=== PATIENT | male | born 1935 | race Caucasian/White ===

== ENCOUNTER → 2016-04-21 | Outpatient (CLI) | payer MEDICARE, OTHER ==
[~2016-04-21] MED LIST: ASPI-345 PO; ATN25T PO; ATOR40TA2 PO; CLOP75TA3 PO; EZET10TA5 PO
--- NOTE | 2016-04-22 08:47 | Diagnostic Imaging Report ---
INDICATION: Back pain, spinal stenosis. TECHNIQUE: The MRI of the lumbar spine was obtained without contrast in a routine fashion. FINDINGS: The lumbar vertebrae are normal in height. There is diffuse inhomogeneity of the marrow signal without focal space-occupying lesion. The conus medullaris appears unremarkable. There is diffuse disc desiccation throughout all levels. At L5-S1, there is mild facet degenerative change with mild disc bulging. These findings are not causing significant canal stenosis. There is, however, bilateral neuroforaminal stenosis, right worse than left. At L4-5, there is facet joint degenerative change. There is minimal disc bulging. There is ligamentum flavum hypertrophy. These findings in combination cause a moderate to severe central canal stenosis with a canal diameter of about 8 mm. There is also bilateral neuroforaminal narrowing which is severe. At L3-4, there is facet joint hypertrophy and ligamentum flavum prominence with diffuse disc bulging. There is asymmetric disc protrusion on the left side causing narrowing of the left lateral recess. There is canal stenosis with a canal diameter of about 7 mm. There is bilateral neuroforaminal narrowing. At L2-3, there is diffuse disc bulging with facet joint hypertrophy and mild ligamentum flavum prominence. These findings in combination cause a moderate central canal stenosis. The neural foramina appear to be patent. At L1-2 and T12-L1, the canal appears widely patent. There is no significant disc herniation or significant bulge. 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 Dictated by: Dictated on workstation # [id number]
== END ==
LOC: RAD 18:46
PROVIDERS: ATTEND Family Medicine
DX: M48.06 Spinal stenosis, lumbar region (principal)
CPT/HCPCS: 72148

== ENCOUNTER → 2016-04-30 | Outpatient (CLI) | payer MEDICARE, OTHER ==
--- NOTE | 2016-04-30 13:40 | Diagnostic Imaging Report ---
PROCEDURE: CT abdomen and pelvis without contrast. TECHNIQUE: Multiple contiguous axial images were obtained through the abdomen and pelvis without the use of intravenous contrast. INDICATION: Left-sided flank pain. COMPARISON: CT abdomen and pelvis of 05/03/2010. FINDINGS: Ground-glass attenuation in the posteromedial right lower lobe is present. Otherwise, lung bases are clear. No pericardial or pleural effusion. 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 Kidneys are symmetric in size. There is nonspecific bilateral perinephric stranding which is fairly symmetric and can be seen with senescent changes. No renal or ureteral calculi. No obstructive uropathy. Prostate is enlarged measuring 5.4 x 3.9 x 3.9 cm. Evaluation of abdominal viscera is limited without IV contrast. Allowing for this, well-circumscribed hypodensities in the right hepatic dome are unchanged and likely represent cysts. The gallbladder and spleen are normal. Pancreas and adrenals are also normal. Stomach is partially distended with fluid and food debris, and there is no discrete wall thickening. No dilated loops of small bowel to indicate bowel obstruction. Sigmoid colon diverticulosis without diverticulitis. Moderate volume of colonic stool is present. The appendix is not seen with certainty, and may be surgically absent. Normal caliber abdominal aorta which is tortuous with extensive atherosclerotic calcification. No abdominal or pelvic lymphadenopathy. No concerning osseous lesions. Diffuse degenerative disc disease in the lumbar spine is greatest at L4-L5 with near-complete disc space height loss and endplate sclerosis. IMPRESSION: 1. No urinary tract calculi. No hydronephrosis or obstructive uropathy. 2. Sigmoid colon diverticulosis without evidence of diverticulitis. 3. Moderate volume of colonic stool. Correlation for constipation is suggested. Dictated by: Dictated on workstation # [id number]
== END ==
LOC: RAD 09:52
PROVIDERS: ATTEND Family Medicine
DX: N13.2 Hydronephrosis with renal and ureteral calculous obstruction (principal); K57.30 Diverticulosis of large intestine without perforation or abscess without bleeding
CPT/HCPCS: 74176

== ENCOUNTER → 2016-05-16 | Outpatient (CLI) | payer MEDICARE, OTHER ==
[2016-05-16 12:16] LABS: BASOPHILS % (AUTO) 0 % (0-2); EOSINOPHILS # (AUTO) 0.3 10^3uL; EOSINOPHILS % (AUTO) 4 % (0-4); LYMPHOCYTES # (AUTO) 1.5 X10^3; MEAN CORPUSCULAR HEMOGLOBIN 30.8 PG (26.0-34.0); MEAN CORPUSCULAR HGB CONC 34.4 g/dL (31.0-37.0); MEAN CORPUSCULAR VOLUME 90 FL (80-100); MEAN PLATELET VOLUME 10.4 FL (6.0-9.5); MONOCYTES # (AUTO) 0.6 X10^3; MONOCYTES % (AUTO) 9 % (3-11); NEUTROPHILS # (AUTO) 4.5 X10^3; NEUTROPHILS % (AUTO) 65 % (51-67); PLATELET COUNT 319 10^3uL (150-450); WHITE BLOOD COUNT 6.85 10^3uL (4.0-11.0)
[2016-05-16 12:21] LABS: BILIRUBIN,URINE Negative (Negative); CLARITY,URINE Clear; COLOR,URINE Yellow; GLUCOSE, URINE (UA) Negative (Negative); LEUKOCYTE ESTERASE ,URINE Negative (Negative); PH,URINE 5.5 (5.0 - 8.0); UROBILINOGEN,URINE 0.2 mg/dL (0.2-1.0)
[2016-05-16 12:38] LABS: ALBUMIN 4.3 g/dL (3.4-5.0); ANION GAP 15.5 MEQ/L (3-15); CALCULATED IONIZED CALCIUM 4.4 mg/dL (3.8-4.6)
[2016-05-16 12:55] LABS: ERYTHROCYTE SEDIMENTATION RT* 11 mm/hr (0-19)
== END ==
LOC: LAB 11:58
PROVIDERS: ATTEND Family Medicine
DX: R79.89 Other specified abnormal findings of blood chemistry (principal); D50.8 Other iron deficiency anemias; G60.9 Hereditary and idiopathic neuropathy, unspecified; N39.0 Urinary tract infection, site not specified; E13.65 Other specified diabetes mellitus with hyperglycemia; E03.4 Atrophy of thyroid (acquired)
CPT/HCPCS: 36415; 80053; 81003; 83036; 84155; 84165; 84436; 84443; 85025; 85652; 86140

== ENCOUNTER → 2016-06-04 | Outpatient (CLI) | payer MEDICARE, OTHER | LOC: RAD 11:25 | PROVIDERS: ATTEND Family Medicine | DX: M16.12 Unilateral primary osteoarthritis, left hip (principal); M16.11 Unilateral primary osteoarthritis, right hip | CPT/HCPCS: 73521 ==